=== PATIENT | male | born 1985 | race Asian ===

== ENCOUNTER 2018-02-07 13:18 | Emergency (ER) | payer OTHER ==
[2018-02-07] MEDS ORDERED: LIDOCAINE 1% INJ-PF (10 MG/ML) 30 ML SDV INJ ONE (13:41)
[2018-02-07] MEDS ORDERED: AZITHROMYCIN 1 GM SUSP PACKET PO ONE (13:41)
[2018-02-07] MEDS ORDERED: CEFTRIAXONE INJ 250 MG VIAL IM ONE (13:41)
--- NOTE | 2018-02-07 13:47 | ER Document Report ---
HPI - HPI Patient complains to provider of: STD exposure Pain Level: Denies Context: Patient is a 33-year-old male presenting to the emergency department for an STD exposure. Patient states that his most recent sexual partner told him that she was having vaginal pain and discharge. He presents to the emergency room for an STD check. Patient denies any dysuria, penile discharge, swelling, erythema or tenderness to either testicle, nausea, vomiting, fever. Past medical history: None Medications: None Allergies: None Past Medical History - General Information source: Patient - Social History Smoking Status: Unknown if Ever Smoked Lives with: Family Family History: Reviewed & Not Pertinent Vertical Provider Document - CONSTITUTIONAL Agree With Documented VS: Yes Notes: GENERAL: Alert, interacts well. No acute distress. HEAD: Normocephalic, atraumatic. EYES: Pupils equal, round, and reactive to light. Extraocular movements intact. ENT: Oral mucosa moist, tongue midline. NECK: Full range of motion. Supple. Trachea midline. LUNGS: Clear to auscultation bilaterally, no wheezes, rales, or rhonchi. No respiratory distress. HEART: Regular rate and rhythm. No murmur ABDOMEN: Soft, non-tender. Non-distended. Bowel sounds present in all 4 quadrants. EXTREMITIES: Moves all 4 extremities spontaneously. No edema, normal radial and dorsalis pedis pulses bilaterally. No cyanosis. BACK: no cervical, thoracic, lumbar midline tenderness. No saddle anesthesia, normal distal neurovascular exam. NEUROLOGICAL: Alert and oriented x3. Normal speech. cranial nerves II through XII grossly intact PSYCH: Normal affect, normal mood. SKIN: Warm, dry, normal turgor. No rashes or lesions noted. Circumcised penis with no discharge at meatus, bilateral testicles descended no erythema or tenderness. Course - Re-evaluation Re-evalutation: 02/07/18 13:45 Treated in the emergency room for STI exposures. Discussed need for patient's partner to also be treated. Return precautions discussed. - Vital Signs Vital signs: Temp Pulse Resp BP Pulse Ox 98.1 F 50 L 16 135/67 H 100 02/07/18 13:22 02/07/18 13:22 02/07/18 13:22 02/07/18 13:22 02/07/18 13:22 Discharge - Discharge Clinical Impression: STD exposure Condition: Stable Disposition: HOME, SELF-CARE Instructions: Urethritis ([facility]) Additional Instructions: As we discussed you have been seen and treated in the emergency room for a STD exposure. You have been treated for gonorrhea and chlamydia. Please refrain from sexual activity for the next 7 days. Please tell all of your sexual partners they also need to be tested and treated. If you have sexual intercourse with those partners prior to them being treated you will just continue to pass the sexually transmitted disease back and forth. Please make an appointment with your primary care provider in the next 24-48 hours. Please return to the emergency room for any other concerning symptoms.
[2018-02-07 13:50] LABS: APPEARANCE,URINE CLEAR; BILIRUBIN,URINE NEGATIVE (NEGATIVE); COLOR,URINE STRAW; GLUCOSE, URINE NEGATIVE (NEGATIVE); KETONES,URINE NEGATIVE (NEGATIVE); LEUKOCYTE ESTERASE,URINE NEGATIVE (NEGATIVE); NITRITE,URINE NEGATIVE (NEGATIVE); PROTEIN,URINE NEGATIVE (NEGATIVE); URINE SPECIFIC GRAVITY 1.012; UROBILINOGEN,URINE NEGATIVE mg/dL (<2.0)
[2018-02-07 14:22] VITALS: BP 138/70
[2018-02-07 15:22] LABS: CHLAM PCR NOT DETECTED (NOT DETECT); GON PCR NOT DETECTED (NOT DETECT)
== END 2018-02-07 14:18 | disposition home or self-care (01) ==
LOC: ER 13:18
DX: Z20.2 Contact with and (suspected) exposure to infections with a predominantly sexual mode of transmission (principal)
CPT/HCPCS: 99283; 96372; 81001; 87491; 87591; J3490; Q0144; J0696